=== PATIENT | male | born 1970 | race Caucasian/White ===

== ENCOUNTER 2019-05-03 18:36 | Emergency (ER) | payer BC ==
[2019-05-03] MEDS: Lidocaine 1% 20 ML MDV ONE (19:42)
[2019-05-03] MEDS: Bacitracin/Neomycin/Polymyxin B Oint 0.9 GM U/D Packet ONE (19:42)
--- NOTE | 2019-05-03 19:45 | EDM.PDOC ---
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 Hemostasis achieved with direct pressure EVALUATION SPECIALIST. Tdap last was given in 2017 per his phone [employer] documentation. No other injuries. The nail is not involved. Onset: Today Onset Date: 05/03/19 Onset Time: 18:30 Associated Symptoms: Reports: No Other Symptoms Treatments EVALUATION SPECIALIST: Reports: Dressing(s) - Related Data Allergies Allergy/AdvReac Type Severity Reaction Status Date / Time No Known Drug Allergies Allergy Cannot Verified 05/03/19 18:42 Remember Home Meds: Home Meds . [No Known Home Meds] 05/03/19 [History] Social & Family History - Tobacco Use Smoking Status *Q: Never Smoker - Alcohol Use Days Per Week of Alcohol Use: 1 Number of Drinks Per Day: 1 Total Drinks Per Week: 1 - Recreational Drug Use Recreational Drug Use: No ED ROS GENERAL - Review of Systems Review Of Systems: ROS reveals no pertinent complaints other than HPI. ED EXAM, SKIN/RASH Exam: See Below Exam Limited By: No Limitations General Appearance: Alert, WD/WN, No Apparent Distress Nose: Normal Inspection Head: Atraumatic, Normocephalic Neck: Normal Inspection, Supple Respiratory/Chest: No Respiratory Distress, Lungs Clear, Normal Breath Sounds Cardiovascular: Normal Peripheral Pulses, Regular Rate, Rhythm Extremities: Normal Inspection, Normal Range of Motion Skin: Warm, Dry, Intact, Wound/Incision (laceration, see HPI. 5/5 strength with the distal flexor and extensor tendons, laceartion involves adipose tissue.) Course - Vital Signs Last Recorded V/S: Last Vital Signs Temp 98.5 F 05/03/19 18:43 Pulse 79 05/03/19 18:43 Resp 16 05/03/19 18:43 BP 131/83 05/03/19 18:43 Pulse Ox 92 L 05/03/19 18:43 - Orders/Labs/Meds Meds: Medications Discontinued Medications Generic Name Dose Route Start Last Admin Trade Name Freq PRN Reason Stop Dose Admin Lidocaine HCl Confirm 05/03/19 18:55 05/03/19 19:42 Xylocaine 1% Administered 05/03/19 18:56 2 ml Dose Administration 20 ml .ROUTE .STK-MED ONE Neomycin/Polymyxin/Bacitracin Confirm 05/03/19 19:36 05/03/19 19:42 Triple Antibiotic Oint Administered 05/03/19 19:37 3 each Dose Administration 3 each .ROUTE .STK-MED ONE Departure - Departure Time of Disposition: 19:44 Disposition: Home, Self-Care 01 Condition: Good Clinical Impression: Laceration of left middle finger - Discharge Information *PRESCRIPTION DRUG MONITORING PROGRAM REVIEWED*: Not Applicable *COPY OF PRESCRIPTION DRUG MONITORING REPORT IN PATIENT [place]: Not Applicable Instructions: Laceration Care, Adult Referrals: Ritika Moses PA-C [Primary Care Provider] - Forms: ED Department Discharge Additional Instructions: return in 10 days for suture removal, keep it covered for 24 hours, and keep it clean and covered when working out side, monitor for signs of infection
== END 2019-05-03 19:52 | disposition home or self-care (01) ==
LOC: KA.ED 18:36
DX: S61.213A Laceration without foreign body of left middle finger without damage to nail, initial encounter (principal); W26.0XXA Contact with knife, initial encounter
CPT/HCPCS: 12002; 99282; J2001